=== PATIENT | female | born 1970 | race Caucasian/White ===

== ENCOUNTER 2019-10-25 18:04 | Emergency (ER) | payer SELFPAY ==
[~2019-10-25] VITALS: Ht 167.6 cm; Wt 140.3 kg
[2019-10-25 18:22] VITALS: BP 144/65
[2019-10-25] MEDS ORDERED: IV NORMAL SALINE 1000ML BAG 1,000 ML IV ONE (18:45)
[2019-10-25 19:09] LABS: BASO # 0.2 x10^3/uL (0.0-0.2); BASO % 1 % (0-3); EOS # 0.4 x10^3/uL (0.0-0.7); EOS % 2 % (0-3); HEMATOCRIT 35.9 % (36.0-47.0); HEMOGLOBIN 12.1 g/dL (12.0-15.5); LYMPH # 5.8 x10^3/uL (1.0-4.8); LYMPH % 33 % (24-48); MEAN CORPUSCULAR HEMOGLOBIN 28 pg (25-35); MEAN CORPUSCULAR HGB CONC 34 g/dL (31-37); MEAN CORPUSCULAR VOLUME 84 fL (79-100); MONO # 1.2 x10^3/uL (0.0-1.1); MONO % 7 % (0-9); NEUT # 9.9 x10^3/uL (1.8-7.7); NEUT % 56 % (31-73); PLATELET COUNT 323 x10^3/uL (140-400); RED BLOOD COUNT 4.28 x10^6/uL (3.50-5.40); RED CELL DISTRIBUTION WIDTH 16.9 % (11.5-14.5); WHITE BLOOD COUNT 17.5 x10^3/uL (4.0-11.0)
[2019-10-25 19:15] LABS: CALCIUM 9.7 mg/dL (8.5-10.1); CREATININE 1.1 mg/dL (0.6-1.0); GFR 52.8; POTASSIUM 3.2 mmol/L (3.5-5.1)
[2019-10-25 19:21] LABS: ALBUMIN 3.9 g/dL (3.4-5.0); TOTAL BILIRUBIN 0.5 mg/dL (0.2-1.0); TOTAL PROTEIN 7.7 g/dL (6.4-8.2)
[2019-10-25 19:40] LABS: CLARITY,URINE TURBID; COLOR,URINE RED
[2019-10-25 19:47] LABS: RBC,URINE TNTC /HPF (0-2)
[2019-10-25 19:48] LABS: AMORPHOUS SEDIMENT,UR PRESENT /HPF; BACTERIA,URINE FEW /HPF (0-FEW)
--- NOTE | 2019-10-25 20:19 | PHYS DOC ---
Past Medical History Past Medical History: Hypertension, Other Additional Past Medical Histor: endometriosis, headaches, prediabetes, MS (NORMA FOY APRN) Past Surgical History: Appendectomy, Cholecystectomy, , Tonsillectomy, Other Additional Past Surgical Histo: uterine ablation (NORMA FOY APRN) Smoking Status: Never Smoker Alcohol Use: None (NORMA FOY APRN) Attending Signature I have participated in the care of this patient and I have reviewed and agree with all pertinent clinical information above including history, exam, and recommendations. (JARRED ARMSTRONG MD) Adult General Chief Complaint Chief Complaint: VAGINAL BLEEDING HPI HPI Patient is a 49 year old female patient with history of fibroids presented to the ED today complaining of vaginal bleeding that has been going on for 3 weeks but got worse in the last 6 hours while traveling from [place] to [place]. Patient reports some dizziness. Denies any nausea/ vomiting. She states she called her own doctor and they requested her to come to the ED to get a CBC to make sure her hemoglobin and hematocrit is okay. Patient reports using 6-8 tampons today. Patient reports having an ablation in 2018. She states for the last 1 year she's had episodes of spotting. (NORMA FOY APRN) Review of Systems Review of Systems Constitutional: Denies fever or chills [] Eyes: Denies change in visual acuity, redness, or eye pain [] HENT: Denies nasal congestion or sore throat [] Respiratory: Denies cough or shortness of breath [] Cardiovascular: No additional information not addressed in HPI [] GI: Reports vaginal bleeding. Denies abdominal pain, nausea, vomiting, bloody stools or diarrhea [] : Denies dysuria or hematuria [] Musculoskeletal: Denies back pain or joint pain [] Integument: Denies rash or skin lesions [] Neurologic: Denies headache, focal weakness or sensory changes [] All other systems were reviewed and found to be within normal limits, except as documented in this note. (NORMA FOY APRN) Current Medications Current Medications Current Medications Medications (Trade) Dose Ordered Sig/Tabatha Start Time Stop Time Status Last Admin Dose Admin Potassium Chloride (Klor-Con) 40 meq 1X ONCE 10/25/19 20:30 2 20:31 DC 10/25/19 20:30 40 MEQ Sodium Chloride 1,000 ml @ 1,000 mls/hr 1X ONCE 10/25/19 18:45 10/25/19 19:44 DC 10/25/19 18:45 1,000 MLS/HR (JARRED ARMSTRONG MD) Allergies Allergies Allergies Coded Allergies Type Severity Reaction Last Updated Verified No Known Drug Allergies 10/25/19 No (JARRED ARMSTRONG MD) Physical Exam Physical Exam Constitutional: Well developed, well nourished, no acute distress, non-toxic appearance. [] HENT: Normocephalic, atraumatic, bilateral external ears normal, oropharynx moist, no oral exudates, nose normal. [] Eyes: PERRLA, EOMI, conjunctiva normal, no discharge. [] Neck: Normal range of motion, no tenderness, supple, no stridor. [] Cardiovascular:Heart rate regular rhythm, no murmur [] Lungs & Thorax: Bilateral breath sounds clear to auscultation [] Abdomen: Bowel sounds normal, soft, no tenderness, no masses, no pulsatile masses. [] Pelvic exam External pelvic appears normal, cervix is not visualized due to body habitus, trace amount of bright red blood noted in the vaginal vault, no CMT, no adnexal tenderness. Skin: Warm, dry, no erythema, no rash. [] Back: No tenderness, no CVA tenderness. [] Extremities: No tenderness, no cyanosis, no clubbing, ROM intact, no edema. [] Neurologic: Alert and oriented X 3, normal motor function, normal sensory function, no focal deficits noted. [] Psychologic: Affect normal, judgement normal, mood normal. [] (NORMA FOY APRN) Current Patient Data Vital Signs Vital Signs Date Time Temp Pulse Resp B/P (MAP) Pulse Ox O2 Delivery O2 Flow Rate FiO2 10/25/19 18:22 110 144/65 (91) 96 Room Air 10/25/19 18:20 97.7 20 97.7 (JARRED ARMSTRONG MD) Lab Values Laboratory Tests Test 10/25/19 19:00 10/25/19 19:32 White Blood Count 17.5 x10^3/uL (4.0-11.0) H Red Blood Count 4.28 x10^6/uL (3.50-5.40) Hemoglobin 12.1 g/dL (12.0-15.5) Hematocrit 35.9 % (36.0-47.0) L Mean Corpuscular Volume 84 fL (79-100) Mean Corpuscular Hemoglobin 28 pg (25-35) Mean Corpuscular Hemoglobin Concent 34 g/dL (31-37) Red Cell Distribution Width 16.9 % (11.5-14.5) H Platelet Count 323 x10^3/uL (140-400) Neutrophils (%) (Auto) 56 % (31-73) Lymphocytes (%) (Auto) 33 % (24-48) Monocytes (%) (Auto) 7 % (0-9) Eosinophils (%) (Auto) 2 % (0-3) Basophils (%) (Auto) 1 % (0-3) Neutrophils # (Auto) 9.9 x10^3/uL (1.8-7.7) H Lymphocytes # (Auto) 5.8 x10^3/uL (1.0-4.8) H Monocytes # (Auto) 1.2 x10^3/uL (0.0-1.1) H Eosinophils # (Auto) 0.4 x10^3/uL (0.0-0.7) Basophils # (Auto) 0.2 x10^3/uL (0.0-0.2) Sodium Level 135 mmol/L (136-145) L Potassium Level 3.2 mmol/L (3.5-5.1) L Chloride Level 98 mmol/L (98-107) Carbon Dioxide Level 26 mmol/L (21-32) Anion Gap 11 (6-14) Blood Urea Nitrogen 20 mg/dL (7-20) Creatinine 1.1 mg/dL (0.6-1.0) H Estimated GFR (Cockcroft-Gault) 52.8 BUN/Creatinine Ratio 18 (6-20) Glucose Level 150 mg/dL (70-99) H Calcium Level 9.7 mg/dL (8.5-10.1) Total Bilirubin 0.5 mg/dL (0.2-1.0) Aspartate Amino Transferase (AST) 68 U/L (15-37) H Alanine Aminotransferase (ALT) 119 U/L (14-59) H Alkaline Phosphatase 100 U/L (46-116) Total Protein 7.7 g/dL (6.4-8.2) Albumin 3.9 g/dL (3.4-5.0) Albumin/Globulin Ratio 1.0 (1.0-1.7) Urine Collection Type Unknown Urine Color Red Urine Clarity Turbid Urine pH Urine Specific Voca 1.025 Urine Protein mg/dL (NEG-TRACE) Urine Glucose (UA) mg/dL (NEG) Urine Ketones (Stick) mg/dL (NEG) Urine Blood (NEG) Urine Nitrite (NEG) Urine Bilirubin (NEG) Urine Urobilinogen Dipstick mg/dL (0.2 mg/dL) Urine Leukocyte Esterase (NEG) Urine RBC Tntc /HPF (0-2) Urine WBC 5-10 /HPF (0-4) Urine Amorphous Sediment Present /HPF Urine Bacteria Few /HPF (0-FEW) Laboratory Tests 10/25/19 19:00 Laboratory Tests 10/25/19 19:00 (JARRED ARMSTRONG MD) EKG EKG [] (NORMA FOY APRN) Radiology/Procedures Radiology/Procedures [] (NORMA FOY APRN) Course & Med Decision Making Course & Med Decision Making Pertinent Labs and Imaging studies reviewed. (See chart for details) This is a 49-year-old female patient presenting to the ED today with vaginal bleeding, history of fibroids. Patient is from [place]. Requesting a CBC. Hemoglobin of 12.1, hematocrit 35.9. CMP with potassium of 3.2, patient was given oral potassium replacement. Patient states she will f/u with her OBGYN as soon as she gets back home. 1 (NORMA FOY APRN) Dragon Disclaimer Dragon Disclaimer This electronic medical record was generated, in whole or in part, using a voice recognition dictation system. (NORMA FOY APRN) Departure Departure Impression: Primary Impression: Dysfunctional uterine bleeding Additional Impression: Hypokalemia Disposition: 01 HOME, SELF-CARE Condition: STABLE Referrals: UNKNOWN PCP NAME (PCP) follow up with your OBGYN as soon as you get home Patient Instructions: Hypokalemia, Uterine Bleeding, Dysfunctional, [id number] Additional Instructions: You were seen for vaginal bleeding your Hemoglobin of 12.1, hematocrit 35.9. Your potassium was slightly low, at 3.2 please increase your dietary potassium intake though foods like bananas. Problem Qualifiers MUTUNGA,NORMA [employer] Oct 25, 2019 20:19 JARRED ARMSTRONG MD Oct 26, 2019 05:46
[2019-10-25] MEDS ORDERED: POTASSIUM CHLORIDE 20 MEQ TABLET.ER. PO ONE (20:30)
== END 2019-10-25 20:37 | disposition home or self-care (01) ==
LOC: ER 18:04
DX: N93.8 Other specified abnormal uterine and vaginal bleeding (principal); E87.6 Hypokalemia; R42 Dizziness and giddiness; I10 Essential (primary) hypertension; Z90.49 Acquired absence of other specified parts of digestive tract; Z90.89 Acquired absence of other organs; Z98.890 Other specified postprocedural states
CPT/HCPCS: 36415; 80053; 81001; 85025; 96360; 99284; J7030